=== PATIENT | male | born 1980 | race African-American/Black ===

== ENCOUNTER 2018-01-20 03:50 | Emergency (ER) | payer SELFPAY ==
[~2018-01-20] VITALS: Ht 175.3 cm; Wt 125.0 kg
[~2018-01-20 03:50] MED LIST: ABIL15TA2 PO
[2018-01-20] MEDS ORDERED: ABIL15TA3 PO (04:09)
[2018-01-20 04:10] VITALS: BP 102/84; PULSE 98; RESP 18; TEMP 98.3; O2SAT 97
[2018-01-20] MEDS ORDERED: HALOPERIDOL LACTATE 5 MG/ML AMP IM ONE (04:45)
[2018-01-20] MEDS ORDERED: diphenhydrAMINE HCL 50 MG/ML VIAL IM ONE (04:45)
[2018-01-20] MEDS ORDERED: LORazepam 2 MG/ML VIAL IM ONE (04:45)
[2018-01-20 05:30] VITALS: BP 130/70; PULSE 87; RESP 18; O2SAT 97
--- NOTE | 2018-01-20 05:57 | PD ---
HPI . Psychiatric symptom Chief Complaint: Medical Clearance Time Seen by Provider: 04:04 Travel History International Travel<30 days: No Contact w/Intl Traveler<30days: No Traveled to known affect area: No History of Present Illness HPI 37-year-old male with a history of bipolar disease, was prescribed Abilify, has been inconsistently compliant with medications notes being up for the past 3 days, having not slept over that duration, walked here from his house voluntarily for help and evaluation. Patient cannot articulate why he needs help, alludes to having visual and auditory hallucinations, and notes that he feels paranoid. Patient states that the cartoon pictures in the wall when talking to him while in the room in the emergency department. With patient's consent, but patient's was called at home, Melly, patient's case was discussed with her. She corroborates the above. Also notes that there is a psychiatric appointment scheduled for tomorrow. Patient denies homicidal or suicidal ideations. PFSH Past Medical History Narrative Medical Past medical history reviewed Arthritis: No Asthma: Yes ( A CHILD) Autoimmune Disease: No Blood Disorders: No Bipolar Disorder: Yes Anxiety: No Depression: Yes Heart Rhythm Problems: No Cancer: No Cardiovascular Problems: No High Cholesterol: No Chemotherapy: No Chest Pain: No Congestive Heart Failure: No COPD: No Cerebrovascular Accident: No Diabetes: No Diminished Hearing: No Endocrine: No Gastrointestinal Disorders: No GERD: No Glaucoma: No Genitourinary: Yes (STRICTURE REPAIR) Headaches: No Hepatitis: No Hiatal Hernia: No Heparin Induced Thrombocytopen: No Hypertension: No Immune Disorder: No Implanted Vascular Access Dvce: No Kidney Stones: No Musculoskeletal: No Neurologic: No Psychiatric: Yes Reproductive: No Respiratory: No Migraines: No Myocardial Infarction: No Radiation Therapy: No Renal Failure: No Schizophrenia: Yes Seizures: No Sickle Cell Disease: No Sleep Apnea: No Thyroid Disease: No Ulcer: No Tetanus Vaccination: > 5 Years Influenza Vaccination: No Past Surgical History Abdominal Surgery: No AICD: No Appendectomy: No Arteriovenous Shunt: No Cardiac Surgery: No Cholecystectomy: No Ear Surgery: No Endocrine Surgery: No Eye Surgery: No Genitourinary Surgery: No Gynecologic Surgery: No Insulin Pump: No Joint Replacement: No Neurologic Surgery: No Oral Surgery: No Pacemaker: No Thoracic Surgery: No Other Surgery: Yes (URINARY STRICTURE REMOVAL 2007.) Social History Alcohol Use: No (SOCIALLY) Tobacco Use: No Substance Use: No Allergies-Medications (Allergen,Severity, Reaction): Coded Allergies: No Known Allergies (Verified Adverse Reaction, Unknown, 01/20/18) Reported Meds & Prescriptions Reported Meds & Active Scripts Active Reported Abilify (Aripiprazole) 15 Mg Tab 15 Mg PO DAILY Narrative Medication Allergies and medications reviewed Review of Systems General / Constitutional: No: Fever Eyes: No: Visual changes HENT: No: Headaches Cardiovascular: No: Chest Pain or Discomfort Respiratory: No: Shortness of Breath Gastrointestinal: No: Abdominal Pain Genitourinary: No: Dysuria Musculoskeletal: No: Pain Skin: No Rash Neurologic: No: Weakness Psychiatric: Positive: Anxiety, Depression, Disorder of Thought, No: Suicidal Ideations, Mood Disorder, Substance Abuse, Homicidal Ideation Endocrine: No: Polydipsia Hematologic/Lymphatic: No: Easy Bruising Physical Exam Narrative GENERAL: Awake alert oriented 3 no acute distress vital signs afebrile normal and stable SKIN: Warm and dry. Color is normal with diaphoresis cyanosis or pallor HEAD: Atraumatic. Normocephalic. EYES: Pupils equal and round. No scleral icterus. No injection or drainage. ENT: No nasal bleeding or discharge. Mucous membranes pink and moist. NECK: Trachea midline. No JVD. Supple nontender full range of motion CARDIOVASCULAR: Regular rate and rhythm. S1-S2 no murmurs or gallops RESPIRATORY: No accessory muscle use. Clear to auscultation. Breath sounds equal bilaterally. GASTROINTESTINAL: Abdomen soft, non-tender, nondistended. Hepatic and splenic margins not palpable. MUSCULOSKELETAL: Extremities without clubbing, cyanosis, or edema. No obvious deformities. NEUROLOGICAL: Awake and alert. No obvious deficits PSYCHIATRIC: Pressured and needed speech, responding to internal stimuli, alluding towards visual and auditory hallucinations. Denies homicidal suicidal ideations. Presented voluntarily to ED for help Data Data Last Documented VS Vital Signs Date Time Temp Pulse Resp B/P (MAP) Pulse Ox O2 Delivery O2 Flow Rate FiO2 01/20/18 05:30 87 18 130/70 (90) 97 Room Air 01/20/18 04:10 98.3 Orders Orders Diphenhydramine Inj (Benadryl Inj) (01/20/18 04:45) Haloperidol Inj (Haldol Inj) (01/20/18 04:45) Lorazepam Inj (Ativan Inj) (01/20/18 04:45) MDM Medical Decision Making Medical Screen Exam Complete: Yes Emergency Medical Condition: Yes Medical Record Reviewed: Yes Differential Diagnosis Acute psychosis, bipolar manic phase, sleep deprivation Narrative Course Prolonged discussion with the patient eventually acquiesced to receiving medications to help with sleep and decreased hallucinatory thoughts. Patient made a contract with this provider, patient will take medications, rest , upon awakening reassess for patient condition. Patient still has loose hallucinations and is not feeling right, patient will be transferred for psychiatric evaluation. The patient feels markedly improved back to his baseline, patient's will be called to present to ED developer family care plan and if all are comfortable and physician reassessment notes stability and ability for discharge, patient will follow up with his psychiatrist as scheduled tomorrow. Diagnosis Primary Impression: Psychosis Qualified Codes: F25.0 - Schizoaffective disorder, bipolar type Additional Impression: Sleep deprivation Rik Salde MD Jan 20, 2018 05:57
[2018-01-20 08:19] VITALS: BP 141/79; PULSE 75; RESP 16; O2SAT 99
--- NOTE | 2018-01-20 10:47 | PD ---
Physical Exam Narrative GENERAL: SKIN: Warm and dry. HEAD: Atraumatic. Normocephalic. EYES: Pupils equal and round. No scleral icterus. No injection or drainage. ENT: No nasal bleeding or discharge. Mucous membranes pink and moist. NECK: Trachea midline. No JVD. CARDIOVASCULAR: Regular rate and rhythm. RESPIRATORY: No accessory muscle use. Clear to auscultation. Breath sounds equal bilaterally. GASTROINTESTINAL: Abdomen soft, non-tender, nondistended. Hepatic and splenic margins not palpable. MUSCULOSKELETAL: Extremities without clubbing, cyanosis, or edema. No obvious deformities. NEUROLOGICAL: Awake and alert. No obvious cranial nerve deficits. Motor grossly within normal limits. Five out of 5 muscle strength in the arms and legs. Normal speech. PSYCHIATRIC: Appropriate mood and affect; insight and judgment normal. Data Data Last Documented VS Vital Signs Date Time Temp Pulse Resp B/P (MAP) Pulse Ox O2 Delivery O2 Flow Rate FiO2 01/20/18 08:19 75 16 141/79 (99) 99 Room Air 01/20/18 04:10 98.3 Orders Orders Diphenhydramine Inj (Benadryl Inj) (01/20/18 04:45) Haloperidol Inj (Haldol Inj) (01/20/18 04:45) Lorazepam Inj (Ativan Inj) (01/20/18 04:45) MDM Medical Record Reviewed: Yes Supervised Visit with JENNIFER: No Narrative Course After approximately 7 hours of rest, the patient now feels much better and states that he continues to not have any suicidal or homicidal ideation. He he states that he feels much better and can continue resting at home, and will follow up with his psychiatrist tomorrow as it is already scheduled. He has called his to come warp picker up as well. The , patient and myself are all in agreement that should anything occur the patient is encouraged to return to the emergency department for more urgent psychiatric evaluation. However all parties particular the and the patient states that he is much better and that they are in agreement to go home rest and follow-up with outpatient psychiatry as it is already scheduled for him. Diagnosis Primary Impression: Psychosis Qualified Codes: F25.0 - Schizoaffective disorder, bipolar type Additional Impression: Sleep deprivation Patient Instructions: General Instructions, Insomnia (ED) Disposition: 01 DISCHARGE HOME Condition: Stable Mikhail Bender MD Jan 20, 2018 10:47
[2018-01-20 11:28] VITALS: BP 146/72
== END 2018-01-20 11:32 | disposition home or self-care (01) ==
LOC: PHED 03:50
DX: F25.0 Schizoaffective disorder, bipolar type (principal); G47.00 Insomnia, unspecified
CPT/HCPCS: 96372; 99283; J1200; J1630; J2060

== ENCOUNTER 2018-04-23 16:22 | Emergency (ER) | payer BC ==
[~2018-04-23] VITALS: Ht 177.8 cm; Wt 120.0 kg
[~2018-04-23 16:22] MED LIST changes: -ABIL15TA2 PO; +ABIL15TA3 PO
[2018-04-23 16:39] VITALS: BP 144/86; PULSE 72; RESP 16; TEMP 98.3; O2SAT 98
[2018-04-23] MEDS ORDERED: ABIL15TA3 PO (16:57)
[2018-04-23] MEDS ORDERED: diphenhydrAMINE HCL 50 MG/ML VIAL IV PUSH ONE (17:30)
[2018-04-23] MEDS ORDERED: DEXAMETHASONE SOD PHOS 4 MG/ML VIAL IV PUSH ONE (17:30)
--- NOTE | 2018-04-23 17:31 | PD ---
HPI Chief Complaint: GI Complaint Time Seen by Provider: 17:09 Travel History International Travel<30 days: No Contact w/Intl Traveler<30days: No Traveled to known affect area: No History of Present Illness HPI 37-year-old male complaining of sore throat, swelling of the throat, nausea vomiting. Patient states the symptoms started 2 AM last night. Patient states that he has feeling of sore throat, swelling of the uvula and nauseous and vomited up what he ate. Patient states that he vomited last night and earlier today. Patient has been drinking fluids without any problem. Patient denies any fever chills. Patient denies any coughing congestion. Patient denies any new medication. Patient has history of bipolar disorder and on Abilify. Patient has been taking the medication for years and nothing new recently. PFSH Past Medical History Arthritis: No Asthma: Yes ( A CHILD) Blood Disorders: No Bipolar Disorder: Yes Anxiety: No Depression: Yes Heart Rhythm Problems: No Cancer: No High Cholesterol: No Chemotherapy: No Chest Pain: No Congestive Heart Failure: No COPD: No Cerebrovascular Accident: No Diabetes: No Diminished Hearing: No Endocrine: No GERD: No Glaucoma: No Genitourinary: Yes (STRICTURE REPAIR) Headaches: No Hepatitis: No Hiatal Hernia: No Heparin Induced Thrombocytopen: No Hypertension: No Immune Disorder: No Implanted Vascular Access Dvce: No Kidney Stones: No Psychiatric: Yes Respiratory: Yes (ASTHMA CHILD) Migraines: No Myocardial Infarction: No Schizophrenia: Yes Tetanus Vaccination: < 5 Years Influenza Vaccination: No Past Surgical History Abdominal Surgery: No AICD: No Appendectomy: No Arteriovenous Shunt: No Cardiac Surgery: No Cholecystectomy: No Ear Surgery: No Endocrine Surgery: No Eye Surgery: No Genitourinary Surgery: No Gynecologic Surgery: No Insulin Pump: No Joint Replacement: No Neurologic Surgery: No Oral Surgery: No Pacemaker: No Thoracic Surgery: No Other Surgery: Yes (URINARY STRICTURE REMOVAL 2007.) Social History Alcohol Use: No (SOCIALLY) Tobacco Use: No Substance Use: No Allergies-Medications (Allergen,Severity, Reaction): Coded Allergies: No Known Allergies (Verified Adverse Reaction, Unknown, 04/23/18) Reported Meds & Prescriptions Reported Meds & Active Scripts Active Reported Abilify (Aripiprazole) 15 Mg Tab 7.5 Mg PO HS Review of Systems General / Constitutional: No: Fever Eyes: No: Visual changes HENT: No: Headaches Cardiovascular: No: Chest Pain or Discomfort Respiratory: No: Shortness of Breath Gastrointestinal: Positive: Nausea, Vomiting, Dysphagia, No: Abdominal Pain Genitourinary: No: Dysuria Musculoskeletal: No: Pain Skin: No Rash Neurologic: No: Weakness Psychiatric: No: Depression Endocrine: No: Polydipsia Hematologic/Lymphatic: No: Easy Bruising Physical Exam Narrative GENERAL: Well-nourished, well-developed patient. SKIN: Focused skin assessment warm/dry. HEAD: Normocephalic. EYES: No scleral icterus. No injection or drainage. Examination of the throat and pharynx shows uvula edema. No ulcer lesion noted. No redness no discharge noted. NECK: Supple, trachea midline. No JVD or lymphadenopathy. CARDIOVASCULAR: Regular rate and rhythm without murmurs, gallops, or rubs. RESPIRATORY: Breath sounds equal bilaterally. No accessory muscle use. GASTROINTESTINAL: Abdomen soft, non-tender, nondistended. MUSCULOSKELETAL: No cyanosis, or edema. BACK: Nontender without obvious deformity. No CVA tenderness. Data Data Last Documented VS Vital Signs Date Time Temp Pulse Resp B/P (MAP) Pulse Ox O2 Delivery O2 Flow Rate FiO2 04/23/18 16:39 98.3 72 16 144/86 (105) 98 Orders Orders Dexamethasone Inj (Decadron Inj) (04/23/18 17:30) Diphenhydramine Inj (Benadryl Inj) (04/23/18 17:30) MDM Medical Decision Making Medical Screen Exam Complete: Yes Emergency Medical Condition: Yes Differential Diagnosis Differential diagnosis including pharyngitis, allergic reaction. Narrative Course 37-year-old male with uvula edema and nausea vomiting. Nontraumatic. No fever. Diagnosis Primary Impression: Uvular edema Patient Instructions: General Instructions Additional Instructions: Take medications as directed. Drink cold fluid. Follow-up with personal physician. Return if persistent problem or worse. Med/Other Pt SpecificInfo: Prescription(s) given Scripts Ranitidine (Zantac) 300 Mg Tab 300 MG PO DAILY, #10 TAB 0 Refills Prov: Dejan Whiting MD 04/23/18 Cetirizine HCl (Zyrtec) 10 Mg Capsule 1 TAB PO DAILY, #10 CAP Prov: Dejan Whiting MD 04/23/18 Prednisone (Prednisone) 20 Mg Tab 20 MG PO BID, #10 TAB 0 Refills Prov: Dejan Whiting MD 04/23/18 Disposition: 01 DISCHARGE HOME Condition: Stable Dejan Whiting MD Apr 23, 2018 17:31
[2018-04-23] MEDS ORDERED: PRED20 PO (18:24)
[2018-04-23] MEDS ORDERED: ZANT300T PO (18:24)
[2018-04-23] MEDS ORDERED: CETI10CA3 PO (18:24)
[2018-04-23 18:32] VITALS: BP 141/82
== END 2018-04-23 18:38 | disposition home or self-care (01) ==
LOC: PHED 16:22
DX: R60.0 Localized edema (principal); R11.2 Nausea with vomiting, unspecified; J45.909 Unspecified asthma, uncomplicated; F31.9 Bipolar disorder, unspecified; F20.9 Schizophrenia, unspecified
CPT/HCPCS: 96374; 96375; 99284; J1100; J1200